=== PATIENT | female | born 1980 | race Hispanic/Latino ===

== ENCOUNTER 2022-12-05 19:55 | Emergency (ER) | payer SELFPAY ==
[~2022-12-05] VITALS: Ht 142.2 cm; Wt 61.2 kg
[~2022-12-05 19:55] MED LIST: NORCO1 TA1 PO
[2022-12-05] MEDS ORDERED: VOLTAREN75 MG PO (22:17)
[2022-12-05] MEDS ORDERED: TRAMADOL HCL50 MG PO (22:17)
[2022-12-05 23:05] VITALS: BP 148/78
== END 2022-12-05 23:05 | disposition home or self-care (01) | DRG 563 ==
LOC: ED 19:55
DX: S46.812A Strain of other muscles, fascia and tendons at shoulder and upper arm level, left arm, initial encounter (principal); S53.142A Lateral subluxation of left ulnohumeral joint, initial encounter; W10.9XXA Fall (on) (from) unspecified stairs and steps, initial encounter